=== PATIENT | female | born 1955 | race Caucasian/White ===

== ENCOUNTER → 2017-06-11 | Outpatient (CLI) | payer BC ==
--- NOTE | 2017-06-11 11:14 | MM ---
Reason for exam: additional evaluation requested from prior study. Last mammogram was performed 1 year and 2 months ago. History: Patient is postmenopausal, has history of breast cancer at age 48, and had first child at age 29. Family history of breast cancer in maternal aunt at age 60. Lumpectomy of the left breast, 2004. Radiation therapy of the left breast, 2004. Physical Findings: Nurse did not find any significant physical abnormalities on exam. MG 3D Diag Mammo W/Cad SATYA Bilateral CC and MLO view(s) were taken. Prior study comparison: April 02, 2016, mammogram, performed at [facility]. November 05, 2014, mammogram, performed at [facility]. There are scattered fibroglandular densities. Stable benign calcifications. Stable post operative lumpectomy changes in the left breast. No significant new findings when compared with previous films. These results were verbally communicated with the patient and result sheet given to the patient on 06/11/17. ASSESSMENT: Benign, BI-RAD 2 RECOMMENDATION: Follow-up diagnostic mammogram of both breasts in 1 year.
== END | disposition home or self-care (01) ==
LOC: RADMAMWWP 09:33
PROVIDERS: ATTEND Obstetrics & Gynecology
DX: Z08 Encounter for follow-up examination after completed treatment for malignant neoplasm (principal); Z85.3 Personal history of malignant neoplasm of breast
CPT/HCPCS: G0204; G0279

== ENCOUNTER → 2017-07-03 | Outpatient (CLI) | payer BC ==
--- NOTE | 2017-07-04 09:04 | BD ---
EXAMINATION TYPE: MG DEXA axial skeleton. DATE OF EXAM: 07/03/2017 COMPARISON: NONE CLINICAL HISTORY: M89.9 Disorder of bone Height: 5 FT 3 1/2 IN Weight: 190 FRAX RISK QUESTIONS: Alcohol (3 or more units per day): NO Family History (Parent hip fracture): NO Glucocorticoids (More than 3mos): NO (Ex: prednisone, prednisolone, methylprednisolone, dexamethasone, and hydrocortisone). History of Fracture in Adulthood: NO Secondary Osteoporosis: 1. Type 1 Diabetes: NO 2. Hyperthyroidism: NO 3. Menopause before 45: NO 4. Malnutrition: NO 5. Chronic liver disease: NO Rheumatoid Arthritis: NO Current Tobacco Use: NO RISK FACTORS HISTORY OF: Active: SOMEWHAT Postmenopausal woman: AGE 48 MEDICATIONS: Thyroid Medications: YES Which medication: LEVOTHYROXINE How Lon-8 YEARS Additional Medications: LEVOTHYROXINE Additional History: EXAM MEASUREMENTS: Bone mineral densitometry was performed using the Nano[employer] System. Bone mineral density as measured about the Lumbar spine is: ----- L1-L4(G/cm2): 1.314 T Score Values are as follows: ----- L2: 0.9 ----- L3: 1.6 ----- L4: 0.6 ----- L1-L4: 1.1 BASELINE Bone mineral density about the R hip (g/cm2): 0.787 Bone mineral density about the L hip (g/cm2): 0.840 T Score values are as follows: -----R Neck: -1.8 -----L Neck: -1.4 -----R Total: -0.7 -----L Total: -0.4 BASELINE IMPRESSION: No evidence for osteoporosis or osteopenia at this time. NOTE: T-SCORE=SD OF THE YOUNG ADULT MEAN.
== END | disposition home or self-care (01) ==
LOC: RADBDWWP 13:13
PROVIDERS: ATTEND Obstetrics & Gynecology
DX: Z13.820 Encounter for screening for osteoporosis (principal)
CPT/HCPCS: 77080

== ENCOUNTER → 2018-09-01 | Outpatient (CLI) | payer BC ==
--- NOTE | 2018-09-01 13:03 | MM ---
Reason for exam: screening (asymptomatic). Last mammogram was performed 1 year and 3 months ago. History: Patient is postmenopausal, has history of breast cancer at age 48, and had first child at age 29. Family history of breast cancer in maternal aunt at age 60. Lumpectomy of the left breast, 2004. Radiation therapy of the left breast, 2004. Physical Findings: A clinical breast exam by your physician is recommended on an annual basis and results should be correlated with mammographic findings. MG 3D Screening Mammo W/Cad Bilateral CC and MLO view(s) were taken. XCCL view(s) were taken of the left breast. Prior study comparison: June 11, 2017, bilateral MG 3d diag mammo w/cad SATYA. April 02, 2016, mammogram, performed at [facility]. The breast tissue is heterogeneously dense. This may lower the sensitivity of mammography. Stable benign calcifications. Focal asymmetry stable left breast. Stable post operative changes in the left breast. No significant changes when compared with prior studies. ASSESSMENT: Benign, BI-RAD 2 RECOMMENDATION: Routine screening mammogram of both breasts in 1 year.
== END | disposition home or self-care (01) ==
LOC: RADMAMWWP 07:49
PROVIDERS: ATTEND Obstetrics & Gynecology
DX: Z12.31 Encounter for screening mammogram for malignant neoplasm of breast (principal)
CPT/HCPCS: 77063; 77067

== ENCOUNTER 2018-10-17 10:03 | Day surgery (SDC) | payer BC ==
[2018-10-14 09:58] VITALS: BMI 31.6
[~2018-10-17 10:03] MED LIST: LACTATED RINGERS 1,000 ML IV SCH
[2018-10-17 10:20] VITALS: TEMP 97.8
[2018-10-17] MEDS ORDERED: LIDOCAINE 1% 20 ML VIAL (10MG/ML) FOR IV START INTRADERMA ONE (10:33)
[2018-10-17] MEDS ORDERED: LACTATED RINGERS 1,000 ML IV ONE (10:33)
[2018-10-17] MEDS ORDERED: LIDOCAINE 1% INJ 10MG/ML (20 ML MDV) ONE (10:50)
[2018-10-17] MEDS ORDERED: PROPOFOL 10 MG/ML 20 ML VIAL IV ONE (10:50)
--- NOTE | 2018-10-17 10:55 | P.GSHP ---
History of Present Illness H&P Date: 10/17/18 Chief Complaint: colon cancer screening Patient here today for colonoscopy. Patient had an episode of bleeding that she wasn't sure was rectal or vaginal one time in June. The problem since that time. No family history of colon cancer. She has not had a colonoscopy in the past. Describes chronic constipation. Past Medical History Past Medical History: Cancer, Thyroid Disorder Additional Past Medical History / Comment(s): hx breast cancer(had radiation) History of Any Multi-Drug Resistant Organisms: None Reported Past Surgical History: Breast Surgery, Section, Orthopedic Surgery, Tonsillectomy Additional Past Surgical History / Comment(s): nose surgery after fx, left breast lumpectomy, left knee arthroscopy Past Anesthesia/Blood Transfusion Reactions: Motion Sickness Smoking Status: Never smoker - Past Family History Mother Family Medical History: Cancer Sister(s) Family Medical History: Cancer Medications and Allergies Home Medications Medication Instructions Recorded Confirmed Type Levothyroxine Sodium [Synthroid] 100 mcg PO DAILY 10/14/18 10/14/18 History Allergies Allergy/AdvReac Type Severity Reaction Status Date / Time adhesive tape Allergy Rash/Hives Verified 10/14/18 09:59 povidone-iodine Allergy Rash/Hives Verified 10/14/18 09:59 [From Betadine] soap [From Betadine] Allergy Rash/Hives Verified 10/14/18 09:59 Surgical - Exam Vital Signs Temp Pulse Resp BP Pulse Ox 97.8 F 81 18 173/87 97 10/17/18 10:18 10/17/18 10:18 10/17/18 10:18 10/17/18 10:18 10/17/18 10:18 Physical exam: General: Well-developed, well-nourished HEENT: Normocephalic, sclerae nonicteric Abdomen: Nontender, nondistended Extremities: No edema Neuro: Alert and oriented Assessment and Plan (1) Colon cancer screening Narrative/Plan: Will proceed with colonoscopy at this time Current Visit: Yes Status: Acute Code(s): Z12.11 - ENCOUNTER FOR SCREENING FOR MALIGNANT NEOPLASM OF COLON SNOMED Code(s): 091542627
--- NOTE | 2018-10-17 11:05 | P.PCN ---
Date of Procedure: 10/17/18 Procedure(s) Performed: PREOPERATIVE DIAGNOSIS: Colon cancer screening POSTOPERATIVE DIAGNOSIS: Diverticulosis PROCEDURE: Colonoscopy ANESTHESIA: MAC SURGEON: Chino Haney M.D. SPECIMENS: None ENDOSCOPIC PROCEDURE: The patient was placed on the endoscopy table in the left decubitus position. The Olympus colonoscope was inserted into the anus and passed under direct visualization to the base of the cecum. The appendiceal orifice was visualized. From that point the scope was slowly withdrawn inspe cting all surfaces carefully. There were no neoplastic inflammatory or polypoid lesions throughout the cecum, ascending, transverse, descending, sigmoid and rectum. There was minimal left-sided diverticulosis noted. Digital rectal examination was normal. The patient was taken to the recovery room in stable condition per anesthesia guidelines. RECOMMENDATIONS: Increase fiber. Follow-up colonoscopy 10 years.
[2018-10-17 12:06] VITALS: BP 133/78; PULSE 76; RESP 17
== END 2018-10-17 12:05 | disposition home or self-care (01) ==
LOC: ORWHC2ENDO 10:03
PROVIDERS: ATTEND Surgery
DX: K57.30 Diverticulosis of large intestine without perforation or abscess without bleeding (principal); E07.9 Disorder of thyroid, unspecified; Z85.3 Personal history of malignant neoplasm of breast; Z92.3 Personal history of irradiation; Z79.890 Hormone replacement therapy; Z88.3 Allergy status to other anti-infective agents; Z91.048 Other nonmedicinal substance allergy status
CPT/HCPCS: 45378; J2001; J2704

== ENCOUNTER → 2019-12-03 | Outpatient (CLI) | payer BC ==
--- NOTE | 2019-12-08 11:04 | MM ---
Reason for exam: screening (asymptomatic). Last mammogram was performed 1 year and 3 months ago. History: Patient is postmenopausal, has history of breast cancer at age 48, and had first child at age 29. Family history of breast cancer in maternal aunt at age 60. Lumpectomy of the left breast, 2004. Radiation therapy of the left breast, 2004. Physical Findings: A clinical breast exam by your physician is recommended on an annual basis and results should be correlated with mammographic findings. MG 3D Screening Mammo W/Cad Bilateral CC and MLO view(s) were taken. Prior study comparison: September 01, 2018, bilateral MG 3d screening mammo w/cad. June 11, 2017, bilateral MG 3d diag mammo w/cad SATYA. There are scattered fibroglandular densities. There is chronic nodularity bilaterally. Post surgical and post therapy changes left breast. No significant changes when compared with prior studies. ASSESSMENT: Benign, BI-RAD 2 RECOMMENDATION: Routine screening mammogram of both breasts in 1 year.
== END | disposition home or self-care (01) ==
LOC: RADMAMWWP 15:12
PROVIDERS: ATTEND Obstetrics & Gynecology
DX: Z12.31 Encounter for screening mammogram for malignant neoplasm of breast (principal); Z80.3 Family history of malignant neoplasm of breast
CPT/HCPCS: 77063; 77067

== ENCOUNTER → 2021-03-14 | Outpatient (CLI) | payer BC ==
--- NOTE | 2021-03-14 12:05 | MM ---
Reason for exam: screening (asymptomatic). Last mammogram was performed 1 year and 3 months ago. History: Patient is postmenopausal, has history of breast cancer at age 48, and had first child at age 29. Family history of breast cancer in maternal aunt at age 60. Lumpectomy of the left breast, 2005. Radiation therapy of the left breast, 2004. Physical Findings: A clinical breast exam by your physician is recommended on an annual basis and results should be correlated with mammographic findings. MG 3D Screening Mammo W/Cad Bilateral CC and MLO view(s) were taken. Prior study comparison: December 03, 2019, bilateral MG 3d screening mammo w/cad. September 01, 2018, bilateral MG 3d screening mammo w/cad. There are scattered fibroglandular densities. Finding #1: Architectural distortion in the middle position of the left breast consistent post treatment changes. Finding #2: There are typically benign dystrophic, round, linear calcifications in both breasts. There is no discrete abnormality. ASSESSMENT: Benign, BI-RAD 2 RECOMMENDATION: Routine screening mammogram of both breasts in 1 year.
== END | disposition home or self-care (01) ==
LOC: RADMAMWWP 07:37
PROVIDERS: ATTEND Obstetrics & Gynecology
DX: Z12.31 Encounter for screening mammogram for malignant neoplasm of breast (principal); Z85.3 Personal history of malignant neoplasm of breast; Z80.3 Family history of malignant neoplasm of breast; Z90.12 Acquired absence of left breast and nipple
CPT/HCPCS: 77063; 77067

== ENCOUNTER → 2022-03-15 | Outpatient (CLI) | payer BC ==
--- NOTE | 2022-03-16 07:22 | MM ---
Reason for Exam: Screening (asymptomatic). Last screening mammogram was performed 12 month(s) ago. Patient History: Menarche at age 9. First Full-Term at age 29. Late child-bearing (after 30). Postmenopausal. Breast cancer, age 48. Previous chest radiation therapy at age 48. 2004, Lumpectomy on the Left side. 2004, Radiation Therapy on the left side. Maternal aunt had breast cancer, age 60. Prior Study Comparison: 09/01/2018 Bilateral Screening Mammogram, [facility]. 12/03/2019 Bilateral Screening Mammogram, [facility]. 03/14/2021 Bilateral Screening Mammogram, [facility]. Tissue Density: There are scattered fibroglandular densities. Findings: Analyzed By CAD. Chronic nodularity bilaterally. Postsurgical postoperative changes to the left breast. No new suspicious worrisome cluster microcalcifications. Asymmetry within the central right breast middle depth on the MLO view. Overall Assessment: Incomplete: need additional imaging evaluation, BI-RAD 0 Management: Diagnostic Mammogram of the right breast. A clinical breast exam by your physician is recommended on an annual basis and results should be correlated with mammographic findings. [facility] will attempt to contact patient to return for supplemental views and ultrasound if indicated. Electronically signed and approved by: Nik Gudino D.O.
== END | disposition home or self-care (01) ==
LOC: RADMAMWWP 06:45
PROVIDERS: ATTEND Obstetrics & Gynecology
DX: Z12.31 Encounter for screening mammogram for malignant neoplasm of breast (principal)
CPT/HCPCS: 77063; 77067

== ENCOUNTER → 2022-03-27 | Outpatient (CLI) | payer BC ==
--- NOTE | 2022-03-27 08:41 | MM ---
Reason for Exam: Additional evaluation requested from abnormal screening. Last screening mammogram was performed less than 1 month ago. Patient History: Menarche at age 9. First Full-Term at age 29. Late child-bearing (after 30). Postmenopausal. Breast cancer, age 48. Previous chest radiation therapy at age 48. 2004, Lumpectomy on the Left side. 2004, Radiation Therapy on the left side. Maternal aunt had breast cancer, age 60. Prior Study Comparison: 04/02/2016 Screening Mammogram, [facility]. 06/11/2017 Bilateral Diagnostic Mammogram, [facility]. 09/01/2018 Bilateral Screening Mammogram, [facility]. 12/03/2019 Bilateral Screening Mammogram, [facility]. 03/14/2021 Bilateral Screening Mammogram, [facility]. 03/15/2022 Bilateral MG 3D screening mammo w/cad, [facility]. Tissue Density: Right: There are scattered fibroglandular densities. Findings: Analyzed By CAD. The area of Concern does not persist on additional spot views and is felt to reflect asymmetric tissue near site of scarring. Overall Assessment: Negative, BI-RAD 1 Management: Screening Mammogram of both breasts in 1 year. A clinical breast exam by your physician is recommended on an annual basis and results should be correlated with mammographic findings. This exam should not preclude additional follow-up of suspicious palpable abnormalities. Results were given to the patient verbally at the time of exam. Electronically signed and approved by: Denis Mae M.D.
== END | disposition home or self-care (01) ==
LOC: RADMAMWWP 08:06
PROVIDERS: ATTEND Obstetrics & Gynecology
DX: R92.8 Other abnormal and inconclusive findings on diagnostic imaging of breast (principal)
CPT/HCPCS: 77061; 77065

== ENCOUNTER → 2022-05-18 | Outpatient (CLI) | payer BC ==
[2022-05-18 10:09] LABS: Basophils # (A) 0.05 X 10*3/uL (0.00-0.10); Basophils % (A) 0.8 %; Eosinophils # (A) 0.24 X 10*3/uL (0.04-0.35); HCT 41.8 % (37.2-46.3); HGB 13.7 g/dL (12.0-15.0); Immature Grans, Automated 0.2 %; Lymphocytes # (A) 2.09 X 10*3/uL (0.90-5.00); Lymphocytes % (A) 34.5 %; MCH 30.1 pg (27.0-32.0); MCHC 32.8 g/dL (32.0-37.0); MCV 91.9 fL (80.0-97.0); Mean Platelet Volume 10.6 fL (9.5-12.2); Monocytes # (A) 0.41 X 10*3/uL (0.20-1.00); Monocytes % (A) 6.8 %; NRBC Per 100 WBC 0 /100 WBCS (0.0-0.0); Neutrophils # (A) 3.26 X 10*3/uL (1.80-7.70); Neutrophils % (A) 53.7 %; Platelet Count 179 X 10*3/uL (140-440); RBC 4.55 X 10*6/uL (4.10-5.20); RDW 12.8 % (11.5-14.5); WBC 6.06 X 10*3/uL (4.50-10.00)
[2022-05-18 10:26] LABS: BUN/Creat Ratio 21.15 Ratio (12.00-20.00); Globulin 2.5 g/dL (1.6-3.3); LDL Cholesterol,Calculated 111.9 mg/dL (0.0-131.0)
[2022-05-18 10:27] LABS: ALT 17 U/L (8-44); AST 25 U/L (13-35); African American GFR (CKD) 83.7 (60.0-200.0); Albumin/Globulin Ratio 1.57 (1.60-3.17); Alkaline Phosphatase 87 U/L (41-126); Blood Urea Nitrogen 17.6 mg/dL (9.0-27.0); Calcium 9.5 mg/dL (8.7-10.3); Carbon Dioxide 25.8 mmol/L (20.0-27.5); Chloride 106 mmol/L (96-109); Glucose 88 mg/dL (70-110); Non-African American GFR(CKD) 72.3 (60.0-200.0); Potassium 4.9 mmol/L (3.5-5.5); Sodium 141 mmol/L (135-145); Total Protein 6.5 g/dL (6.2-8.2)
== END | disposition home or self-care (01) ==
LOC: LABWHC1 07:08
PROVIDERS: ATTEND Internal Medicine
DX: Z11.59 Encounter for screening for other viral diseases (principal); E03.9 Hypothyroidism, unspecified
CPT/HCPCS: 36415; 80053; 80061; 84439; 84443; 85025; 86803

== ENCOUNTER → 2023-04-12 | Outpatient (CLI) | payer MEDICARE, BC ==
--- NOTE | 2023-04-12 12:16 | BD ---
EXAMINATION TYPE: Axial Bone Density DATE OF EXAM: 04/12/2023 CLINICAL HISTORY: 67 years old Female. ICD-10 CODE: N95.1 POST MENOPAUSAL Height: 63 Weight: 167.4 FRAX RISK QUESTIONS: Alcohol (3 or more units per day): no Family History (Parent hip fracture): no Glucocorticoids (More than 3mos): no History of Fracture in Adulthood: no Secondary Osteoporosis: 1. Type 1 Diabetes: no 2. Hyperthyroidism: no 3. Menopause before 45: no 4. Malnutrition: no 5. Chronic liver disease: no Rheumatoid Arthritis: no Current Tobacco Use: no RISK FACTORS HISTORY OF: Hip Fracture (Right/Left): no Spine Fracture: no History of Wrist Fracture: no Surgery to Spine/Hip(right/left)/Wrist (right/left): no Family History of Osteoporosis: no Active: yes Diet low in dairy products/other sources of calcium: yes Postmenopausal woman: yes Take estrogen and/or progesterone medications: no Lost more than 2 inches in height since high school: yes Frequent falls: no Poor Health: no Hyperparathyroidism: no Adrenal Insufficiency: no MEDICATIONS: Prednisone or other steroids: no Thyroid Medications: Levothyroxine How Long: past 30 years Osteoporosis Medications: no Additional Medications: Additional History: Breast cancer 20 years ago with radiation EXAM MEASUREMENTS: Bone mineral densitometry was performed using the [employer]uteeq System. Bone mineral density as measured about the Lumbar spine is: ----- L1-L4(G/cm2): 1.264 T Score Values are as follows: ----- L1: 0.4 ----- L2: 0.6 ----- L3: 0.8 ----- L4: 0.8 ----- L1-L4: 0.7 Z Score Values are as follows: ----- L1: 1.7 ----- L2: 1.9 ----- L3: 2.1 ----- L4: 2.1 ----- L1-L4: 2.0 Bone mineral density has: decreased -3.8 % since study of: 07/03/2017 Bone mineral density about the R hip (g/cm2): 0.868 Bone mineral density about the L hip (g/cm2): 0.978 T Score values are as follows: -----R Neck: -2.0 -----L Neck: -1.5 -----R Total: -1.1 -----L Total: -0.2 Z Score values are as follows: -----R Neck: -0.6 -----L Neck: -0.1 -----R Total: 0.1 -----L Total: 0.9 Bone mineral density has: decreased -1.4 % since study of: 07/03/2017 FRAX%s: The graph provided illustrates a 11.5% chance for a major osteoporotic fx and a 2.2% chance f or the hips probability for fx in 10 years time. IMPRESSION: Osteopenia (T Score between -2.5 and -1). There is slightly increased risk of fracture and the patient may be considered for treatment. Re-Screen 2-5 years. NOTE: T-SCORE=SD OF THE YOUNG ADULT MEAN.
--- NOTE | 2023-04-15 01:47 | MM ---
Reason for Exam: Screening (asymptomatic). Last mammogram was performed 1 year(s) and 1 month(s) ago. Patient History: Menarche at age 9. First Full-Term at age 29. Late child-bearing (after 30). Postmenopausal. Breast cancer, age 48. Previous chest radiation therapy at age 48. 2004, Lumpectomy on the Left side. 2004, Radiation Therapy on the left side. Maternal aunt had breast cancer, age 60. Prior Study Comparison: 03/14/2021 Bilateral Screening Mammogram, [facility]. 03/15/2022 Bilateral MG 3D screening mammo w/cad, [facility]. 03/27/2022 Right MG 3D work up w/cad RT, [facility]. Tissue Density: There are scattered fibroglandular densities. Findings: Analyzed By CAD. Postsurgical and posttreatment change left breast. There is chronic nodularity medially on the right. There is no suspicious group of microcalcifications or new suspicious mass in either breast. Overall Assessment: Benign, BI-RAD 2 Management: Screening Mammogram of both breasts in 1 year. . Patient should continue monthly self-breast exams. A clinical breast exam by your physician is recommended on an annual basis. This exam should not preclude additional follow-up of suspicious palpable abnormalities. Electronically signed and approved by: Lexy Sotomayor M.D. Radiologist
== END | disposition home or self-care (01) ==
LOC: RADMAMWWP 06:55
PROVIDERS: ATTEND Obstetrics & Gynecology
DX: Z12.31 Encounter for screening mammogram for malignant neoplasm of breast (principal); M85.89 Other specified disorders of bone density and structure, multiple sites; Z78.0 Asymptomatic menopausal state; Z80.3 Family history of malignant neoplasm of breast; Z85.3 Personal history of malignant neoplasm of breast
CPT/HCPCS: 77063; 77067; 77080

== ENCOUNTER → 2024-05-22 | Outpatient (CLI) | payer MEDICARE, BC ==
[2024-05-22 10:36] LABS: Basophils # (A) 0.06 X 10*3/uL (0.00-0.10); Eosinophils # (A) 0.27 X 10*3/uL (0.04-0.35); Eosinophils % (A) 4.5 %; HCT 44.5 % (37.2-46.3); HGB 14.7 g/dL (12.0-15.0); Lymphocytes # (A) 2.22 X 10*3/uL (0.90-5.00); Lymphocytes % (A) 36.7 %; MCH 30.1 pg (27.0-32.0); Mean Platelet Volume 10.3 FL (9.5-12.2); Monocytes # (A) 0.52 X 10*3/uL (0.20-1.00); Monocytes % (A) 8.6 %; NRBC Per 100 WBC 0 X 10*3/uL (0.00-0.01); Neutrophils # (A) 2.96 X 10*3/uL (1.80-7.70); Neutrophils % (A) 48.9 %; Platelet Count 197 X 10*3/uL (140-440); RBC 4.89 X 10*6/uL (4.10-5.20); RDW 12.8 % (11.5-14.5); WBC 6.05 X 10*3/uL (4.50-10.00)
[2024-05-22 11:11] LABS: ALT 11 U/L (8-44); AST 24 U/L (13-35); Albumin/Globulin Ratio 1.54 Ratio (1.60-3.17); Alkaline Phosphatase 87 U/L (41-126); BUN/Creat Ratio 15.22 Ratio (12.00-20.00); Blood Urea Nitrogen 13.7 mg/dL (9.0-27.0); Calcium 9.2 mg/dL (8.7-10.3); Carbon Dioxide 24.1 mmol/L (21.6-31.8); Chloride 107 mmol/L (96-109); Chol/HDL Ratio 4.39 Ratio; Globulin 2.6 g/dL (1.6-3.3); Glucose 96 mg/dL (70-110); LDL Cholesterol,Calculated 130.3 mg/dL (0.0-131.0); Potassium 4.5 mmol/L (3.5-5.5); Sodium 142 mmol/L (135-145); T4, Free (Free Thyroxine) 1.58 ng/dL (0.80-1.80); Total Bilirubin 0.4 mg/dL (0.3-1.2); Total Protein 6.6 g/dL (6.2-8.2)
== END | disposition home or self-care (01) ==
LOC: LABWHC1 07:27
PROVIDERS: ATTEND Internal Medicine
DX: I10 Essential (primary) hypertension (principal); M85.80 Other specified disorders of bone density and structure, unspecified site; E03.9 Hypothyroidism, unspecified
CPT/HCPCS: 36415; 80053; 80061; 82306; 83735; 84439; 84443; 85025

== ENCOUNTER → 2024-06-23 | Outpatient (CLI) | payer MEDICARE, BC ==
--- NOTE | 2024-06-29 09:47 | MM ---
Reason for Exam: Screening (asymptomatic). Last mammogram was performed 1 year(s) and 2 month(s) ago. Patient History: Menarche at age 9. First Full-Term at age 29. Late child-bearing (after 30). Postmenopausal. Breast cancer, age 48. Previous chest radiation therapy at age 48. 2004, Lumpectomy on the Left side. 2004, Radiation Therapy on the left side. Maternal aunt had breast cancer, age 60. Prior Study Comparison: 03/15/2022 Bilateral MG 3D screening mammo w/cad, [facility]. 03/27/2022 Right MG 3D work up w/cad RT, [facility]. 04/12/2023 Bilateral MG 3D screening mammo w/cad, [facility]. Tissue Density: There are scattered areas of fibroglandular density. Findings: Analyzed By CAD. Right breast: There is no suspicious group of microcalcifications or new suspicious mass. Benign-appearing calcifications right breast. Left breast: There is no suspicious group of microcalcifications or new suspicious mass. Benign-appearing calcifications left breast. Overall Assessment: Benign, BI-RAD 2 Management: Screening Mammogram of both breasts in [address] [facility] will attempt to contact patient to return for supplemental views and ultrasound if indicated. Patient should continue monthly self-breast exams. A clinical breast exam by your physician is recommended on an annual basis. This exam should not preclude additional follow-up of suspicious palpable abnormalities. Note on Jamia scores and lifetime risk: 1. A Jamia score greater than 3% is considered moderate risk. If this is the case, consider specialist referral to assess eligibility for a risk reducing agent. 2. If overall lifetime risk for the development of breast cancer is 20% or higher, the patient may qualify for future screening with alternating mammogram and breast MRI. [facility], , 06/29/2024 9:44 AM. Electronically signed and approved by: Bhavesh Garvin DO
== END | disposition home or self-care (01) ==
LOC: RADMAMWWP 06:58
PROVIDERS: ATTEND Internal Medicine
DX: Z12.31 Encounter for screening mammogram for malignant neoplasm of breast (principal); Z78.0 Asymptomatic menopausal state; Z80.3 Family history of malignant neoplasm of breast; Z85.3 Personal history of malignant neoplasm of breast; R92.323 Mammographic fibroglandular density, bilateral breasts
CPT/HCPCS: 77063; 77067